=== PATIENT | female | born 1995 | race Two or more races ===

== ENCOUNTER 2024-06-21 20:36 | Observation (INO) | payer BC, OTHER, SELFPAY ==
[2024-06-21 20:40] VITALS: BP 124/70; PULSE 91
--- NOTE | 2024-06-21 21:05 | PD.LDPN ---
Documentation for date of: 06/21/24 OB Labor Progress Note Assessment and Plan Comments: Patient is a 29yo with SIUP at 31+wk presenting to L&D for less movement than normal. She notes no ctx, no lof, no vaginal bleeding. Current : This has been uncomplicated, she has had regular OB care with [place] OBGYN [place]. She notes she takes ASA 81mg QD preventatively. No issues with HTN or GDM. Previous pregnancies: hx of a 12wk loss treated with D&C ROS negative other than what was described above. Vitals wnl, afebrile General: well developed, well nourished, no acute distress, conversant Cardiac: normal heart rate Lungs: breathing without distress Abdomen: soft, gravid, non-tender, no rebound or guarding Extremities: no pain with palpation of calves NST: reassuring for gestational age with 10x10 accels, no decels, mod speedy Bedside ultrasound performed by Dr. Conway: SIUP with transverse presentation (head on maternal right side), +FCA, +FM, anterior placenta, BETHANIE 12cm Assessment: Patient is a 29yo with SIUP at 31+wk with decreased movement. Vitals wnl, benign exam. Reassuring status based on NST/BETHANIE (modified BPP). Plan: -Provided reassurance regarding findings -Continue routine follow up with OBGYN -Discussed return precautions at length including FKCs Dr. Conway
[2024-06-21 21:15] VITALS: BP 124/70; PULSE 91; RESP 18; RESP 99; TEMP 36.9
== END 2024-06-21 21:45 | disposition home or self-care (01) ==
PROVIDERS: Admitting Provider Obstetrics & Gynecology; Visit Provider Obstetrics & Gynecology
DX: O36.8130 Decreased fetal movements, third trimester, not applicable or unspecified (principal); Z3A.31 31 weeks gestation of pregnancy
CPT/HCPCS: 59025; 59899

== ENCOUNTER → 2025-03-29 | Outpatient (CLI) | payer BC, OTHER, SELFPAY ==
[2025-03-29 11:02] LABS: Collection Type, Urine Clean Catch
[2025-03-29 11:23] LABS: Basophils # (Auto) 0.1 Thou/mm3 (0.0-0.2); Basophils % (Auto) 1 % (0-2.5); Eosinophils # (Auto) 0.2 Thou/mm3 (0.0-0.5); Eosinophils % (Auto) 2 % (0-10); Hematocrit 46.0 % (36.0-46.0); Hemoglobin 16.0 g/dL (12.0-16.0); Immature Granulocytes Auto 0.02 Thou/mm3 (0.00-0.00); Lymphocytes # (Auto) 2.2 Thou/mm3 (1.0-4.8); Lymphocytes % (Auto) 29 % (10-50); Mean Corpuscular HGB Conc 34.8 g/dl (31.0-37.0); Mean Corpuscular Hemoglobin 30.8 pg (25.0-35.0); Mean Corpuscular Volume 89 fL (80-100); Monocytes # (Auto) 0.4 Thou/mm3 (0.0-0.8); Monocytes % (Auto) 5 % (0-12); Neutrophils # (Auto) 4.8 Thou/mm3 (1.8-7.7); Neutrophils % (Auto) 63 % (37-80); Nucleated Red Blood Cell # 0.00 Thou/mm3 (0.00-0.00); Nucleated Red Blood Cell % 0 /100 WBC (0); Platelet Count 276 Thou/mm3 (140-440); RDW Standard Deviation 39.8 fL (36.4-46.3); Red Blood Count 5.20 Miln/mm3 (4.00-5.20); White Blood Count 7.7 Thou/mm3 (3.6-11.0)
[2025-03-29 11:25] LABS: Bilirubin,Urine Negative (Negative); Blood,Urine Trace (Negative); Clarity,Urine Clear (Clear/Hazy); Color,Urine Colorless (Lt Yel-Yel); Culture Indicated,Urine Not Indicated; Glucose, Urine Negative (Negative); Ketones,Urine Negative (Negative); Leukocyte Esterase,Urine Negative (Negative); Nitrite,Urine Negative (Negative); PH,Urine 6.0 (5.0-7.0); Protein,Urine Negative (Neg - Trace); RBC,Urine 2 /hpf (0-3); Specific Gravity,Urine 1.011 (1.001-1.035); Squamous Epithelial Cell,Urine < 1 /hpf (0-5); Urobilinogen,Urine Negative mg/dL (0.0-1.0); WBC,Urine 1 /hpf (0-5)
[2025-03-29 11:59] LABS: Alanine Aminotransferase 30 U/L (10-49); Albumin, Serum 4.9 gm/dL (3.5-5.0); Albumin/Globulin Ratio 2.1 (1.2-2.2); Anion Gap 11 (7-16); Aspartate Amino Transferase < 8 U/L (0-34); BUN/Creatinine Ratio 22 Ratio (12-20); Bilirubin,Total 0.8 mg/dL (0.3-1.2); Blood Urea Nitrogen 13 mg/dL (9-23); Calcium 9.9 mg/dL (8.3-10.6); Calcium (Corrected) 9.9 mg/dL (8.5-10.1); Carbon Dioxide 24.1 mMol/L (20.0-31.0); Chloride 104 mMol/L (98-107); Creatinine (Component) 0.6 mg/dL (0.6-1.3); Globulin 2.3 gm/dL (2.3-3.5); Glucose 96 mg/dL (74-106); Osmolality,Calculated 277 (275-295); Potassium 4.0 mMol/L (3.4-5.1); Sodium 139 mMol/L (136-145); Thyroid Stimulating Hormone 1.43 uIU/mL (0.55-4.78); Total Protein 7.2 gm/dL (5.7-8.2); eGFR > 60 See Note
[2025-03-29 12:34] LABS: Alkaline Phosphatase 103 U/L (46-116); Cardiac Risk Estimate 3.5 RATIO (3.7-5.6); Cholesterol 197 mg/dL (132-200); HDL Cholesterol 57 mg/dL (40-60); LDL Cholesterol,Calculated 113 mg/dL (0-130); Triglycerides 135 mg/dL (30-150)
[2025-03-29 12:52] LABS: Hepatitis B Surface Ab NonReact(Not Immune) (Immune); Vitamin D 25 Hydroxy Total 36.7 ng/mL (7.3-40.2)
[2025-04-04 07:09] LABS: Hepatitis A Antibody, Total* REACTIVE
== END | disposition home or self-care (01) ==
LOC: COPL 09:57
PROVIDERS: PCP Family Medicine; Referring Provider Physician Assistant; Visit Provider Physician Assistant
DX: Z00.00 Encounter for general adult medical examination without abnormal findings (principal); E55.9 Vitamin D deficiency, unspecified
CPT/HCPCS: 36415; 80053; 80061; 81001; 82306; 84443; 85025; 86706; 86708